=== PATIENT | male | born 1960 | race Caucasian/White ===

== ENCOUNTER → 2017-01-12 | Day surgery (SDC) | payer BC ==
[~2017-01-12] MED LIST: AMLODIPINE-BEN1 EAC3 PO; ASPIRIN81 MG PO; COREG CR20 MG PO; ZOCOR20 MG PO
--- NOTE | ~2017-01-12 | OR ---
Unit #: [id number] #: [id number] Patient: MESSI MCCORMICK [id number] [address] [place], [place] [address] [id number] MR#: [id number] NAME: MESSI MCCORMICK ROOM: Date of Procedure: 01/12/2017 Admission Date: 01/12/2017 Surgeon: Dario Shahid Jr., M.D. : 1960 Attending Physician: Dario Shahid Jr., M.D. Primary Care Physician: Yaneth Smith M.D. PROCEDURE OPERATIVE NOTE REVISED REPORT INDICATION FOR PROCEDURE The patient is a 57-year-old white male with no previous colonoscopies who presents desire screening colonoscopy. This has been recommended by his family physician. He is brought in at this time at his request for this procedure. He understands the procedure including the risks including that of perforation and bleeding and consents. PREOPERATIVE DIAGNOSIS Screening colonoscopy, rule out pathology. POSTOPERATIVE DIAGNOSIS Diverticulosis of the left colon, otherwise normal colonoscopy to the cecum. ANESTHESIA MAC. SURGEON Dr. Dario Shahid Jr. PROCEDURE PERFORMED Flexible colonoscopy to the cecum. PROCEDURE The patient was positioned in the Gallardo position with the left side down after being given MAC anesthesia. Digital rectal examination was performed which revealed no palpable masses or tenderness. No blood or stool within the rectal ampulla. The prostate was normal by palpation. The Olympus colonoscope was advanced in the anal canal up to the rectum and retroflexed down to the area of the anorectal region. There was no evidence of any fissures, no significant internal hemorrhoids. The scope was then straightened and advanced up into the rectosigmoid and the sigmoid and descending colon areas where there were a few diverticula without evidence of diverticulitis. The scope was then advanced around the splenic flexure and the transverse colon, around the hepatic flexure and the ascending colon, down in the area of the cecum. The light tip of the scope could be seen transilluminating through the right lower quadrant abdominal wall area. Multiple attempts at advancing the scope up to the distal ileum were unsuccessful. The scope was slowly removed. There were no tumors, polyps, cancer, AVMs. No evidence of colitis or diverticulitis. The entire colon appeared normal throughout except noting Unit #: [id number] #: [id number] Patient: MESSI MCCORMICK a few diverticula in the left colon. There were no other abnormalities. The scope was removed. The patient tolerated the procedure well and discharged in satisfactory condition. Dictated by... Dario Shahid Jr., MMary. TAVO/marah TD: 01/12/2017 07:56 JOB #: [id number] PROCEDURE OPERATIVE NOTE Page 1 of 1 X Dario Shahid MD X PROCEDURE OPERATIVE NOTE
== END | disposition home or self-care (01) ==
LOC: COPS 05:48
PROVIDERS: Surgery
PROC: 0DJD8ZZ Inspection of Lower Intestinal Tract, Via Natural or Artificial Opening Endoscopic (ICD-10-PCS; principal; 2017-01-12 07:00)
DX: Z12.11 Encounter for screening for malignant neoplasm of colon (principal); K57.30 Diverticulosis of large intestine without perforation or abscess without bleeding; I10 Essential (primary) hypertension; Z79.899 Other long term (current) drug therapy; Z98.890 Other specified postprocedural states; Z96.652 Presence of left artificial knee joint; Z90.49 Acquired absence of other specified parts of digestive tract
CPT/HCPCS: J2250